=== PATIENT | female | born 1985 | race Caucasian/White ===

== ENCOUNTER → 2024-12-28 11:02 | Outpatient (REF) | payer BC, SELFPAY ==
[2024-12-28 13:48] LABS: Beta HCG Quantitative 7228.40 mIU/ml
== END ==
LOC: RAD 11:02
PROVIDERS: ATTENDING PHYSICIAN Advanced Practice Midwife; FAMILY PHYSICIAN Internal Medicine
DX: O36.80X0 Pregnancy with inconclusive fetal viability, not applicable or unspecified (principal); Z32.01 Encounter for pregnancy test, result positive
CPT/HCPCS: 36415; 76830; 76856; 84702

== ENCOUNTER → 2025-01-02 10:36 | Outpatient (REF) | payer BC, SELFPAY | LOC: REG 10:36 | PROVIDERS: ATTENDING PHYSICIAN Advanced Practice Midwife | DX: Z32.01 Encounter for pregnancy test, result positive (principal) | CPT/HCPCS: 36415; 84702 ==

== ENCOUNTER → 2025-01-03 16:01 | Outpatient (REF) | payer BC, SELFPAY | LOC: RAD 16:01 | PROVIDERS: ATTENDING PHYSICIAN Obstetrics & Gynecology; FAMILY PHYSICIAN Nurse Practitioner Adult Health | DX: O36.80X0 Pregnancy with inconclusive fetal viability, not applicable or unspecified (principal) | CPT/HCPCS: 76801; 76817 ==

== ENCOUNTER → 2025-01-09 18:12 | Outpatient (REF) | payer BC, SELFPAY | LOC: RAD 18:12 | PROVIDERS: ATTENDING PHYSICIAN Obstetrics & Gynecology; FAMILY PHYSICIAN Nurse Practitioner Adult Health | DX: O20.9 Hemorrhage in early pregnancy, unspecified (principal) | CPT/HCPCS: 76801; 76817 ==